=== PATIENT | male | born 1975 | race Caucasian/White ===

== ENCOUNTER 2016-09-09 05:25 | Emergency (ER) | payer OTHER ==
[~2016-09-09] VITALS: Ht 182.9 cm; Wt 79.6 kg
[2016-09-09 07:43] VITALS: BP 142/97
== END 2016-09-09 07:46 | disposition left against medical advice (07) ==
LOC: EME 05:25
DX: R19.7 Diarrhea, unspecified (principal); J06.9 Acute upper respiratory infection, unspecified; Z87.891 Personal history of nicotine dependence
CPT/HCPCS: 80053; 85025; 87502; 99281; 99283